=== PATIENT | female | born 1965 | race Caucasian/White ===

== ENCOUNTER 2017-12-24 11:17 | Emergency (ER) | payer OTHER ==
--- NOTE | 2017-12-24 12:16 | ER Document Report ---
ED Medical Screen (RME) - General Chief Complaint: Near Syncope Stated Complaint: WEAKNESS,CONFUSION Time Seen by Provider: 12/24/17 12:07 Mode of Arrival: Medic Information source: Patient, Relative Notes: 52-year-old female presents with daughter with concerns of confusion and syncope. Daughter notes confusion episodes have been ongoing now for months but symptoms have worsened recently. Daughter also notes a syncopal episode that occurred today while the patient was outside Patient did not completely pass out felt lightheaded and dizzy, patient does not remember these episodes, does have a history of seizures not on medications does take Benadryl at nighttime I have greeted and performed a rapid initial assessment of this patient. A comprehensive ED assessment and evaluation of the patient, analysis of test results and completion of the medical decision making process will be conducted by additional ED providers. PHYSICAL EXAMINATION: GENERAL: Well-appearing, well-nourished and in no acute distress. HEAD: Atraumatic, normocephalic. EYES: Pupils equal round extraocular movements intact, conjunctiva are normal. ENT: Nares patent NECK: Normal range of motion LUNGS: No respiratory distress Musculoskeletal: Normal range of motion NEUROLOGICAL: Normal speech, normal gait. PSYCH: Normal mood, normal affect. SKIN: Warm, Dry, normal turgor, no rashes or lesions noted. TRAVEL OUTSIDE OF THE [place] IN LAST 30 DAYS: No - Related Data Allergies/Adverse Reactions: codeine [Codeine] Allergy (Verified 12/24/17 11:19) Past Medical History Neurological Medical History: Reports: Hx Seizures Renal/ Medical History: Denies: Hx Peritoneal Dialysis Past Surgical History: Reports: Hx Section - x3 - Immunizations Hx Diphtheria, Pertussis, Tetanus Vaccination: No Physical Exam - Vital signs Vitals: Temp Pulse Resp BP Pulse Ox 99.0 F 93 18 150/74 H 95 12/24/17 11:24 12/24/17 11:24 12/24/17 11:24 12/24/17 11:24 12/24/17 11:24 Course - Vital Signs Vital signs: Temp Pulse Resp BP Pulse Ox 99.0 F 93 18 150/74 H 95 12/24/17 11:24 12/24/17 11:24 12/24/17 11:24 12/24/17 11:24 12/24/17 11:24
[2017-12-24 12:56] LABS: ABSOLUTE BASOPHILS # (AUTO) 0.1 10^3/uL (0.0-0.2); ABSOLUTE MONOCYTES (AUTO) 0.5 10^3/uL (0.1-1.4); ABSOLUTE NEUT (AUTO) 9.9 10^3/uL (1.7-8.2); BASOPHILS % (AUTO) 0.5 % (0-2); EOSINOPHILS % (AUTO) 0.1 % (0-6); HEMATOCRIT 47.1 % (36.0-47.0); HEMOGLOBIN 15.5 g/dL (12.0-15.5); MEAN CORPUSCULAR HEMOGLOBIN 30.2 pg (27.0-33.4); MEAN CORPUSCULAR HGB CONC 32.9 g/dL (32.0-36.0); MEAN CORPUSCULAR VOLUME 92 fl (80-97); MONOCYTES % (AUTO) 4.3 % (3-13); PLATELET COUNT 222 10^3/uL (150-450); RED BLOOD COUNT 5.15 10^6/uL (3.72-5.28); RED CELL DISTRIBUTION WIDTH 13.1 % (11.5-14.0); SEGMENTED NEUTROPHILS % (AUTO) 86.1 % (42-78); TOTAL CELLS COUNTED % (AUTO) 100 %; WHITE BLOOD COUNT 11.5 10^3/uL (4.0-10.5)
--- NOTE | 2017-12-24 12:57 | RADIOLOGY REPORT (SQ) ---
EXAM DESCRIPTION: CHEST 2 VIEWS COMPLETED DATE/TIME: 12/24/2017 12:49 pm REASON FOR STUDY: syncope COMPARISON: None. EXAM PARAMETERS: NUMBER OF VIEWS: two views TECHNIQUE: Digital Frontal and Lateral radiographic views of the chest acquired. RADIATION DOSE: NA LIMITATIONS: none FINDINGS: LUNGS AND PLEURA: No opacities, masses or pneumothorax. No pleural effusion. MEDIASTINUM AND HILAR STRUCTURES: No masses or contour abnormalities. HEART AND VASCULAR STRUCTURES: Heart normal size. No evidence for failure. BONES: No acute findings. HARDWARE: None in the chest. OTHER: No other significant finding. IMPRESSION: NO ACUTE RADIOGRAPHIC FINDING IN THE CHEST. TECHNICAL DOCUMENTATION: JOB ID: [id number] [employer]- All Rights Reserved Reading location - IP/workstation name: [facility][email or web address]
[2017-12-24 13:12] LABS: ALANINE AMINOTRANSFERASE 51 U/L (9-52); ALBUMIN 4.8 g/dL (3.5-5.0); ALKALINE PHOSPHATASE 78 U/L (38-126); ANION GAP 12 (5-19); ASPARTATE AMINO TRANSFERASE 44 U/L (14-36); BILIRUBIN,DIRECT 0.5 mg/dL (0.0-0.4); BILIRUBIN,TOTAL 0.9 mg/dL (0.2-1.3); BLOOD UREA NITROGEN 14 mg/dL (7-20); CALCIUM 11.2 mg/dL (8.4-10.2); CARBON DIOXIDE 28 mmol/L (22-30); CHLORIDE 106 mmol/L (98-107); CREATINE KINASE 192 U/L (30-135); GLUCOSE 122 mg/dL (75-110); POTASSIUM 4.2 mmol/L (3.6-5.0); SODIUM 145.8 mmol/L (137-145)
--- NOTE | 2017-12-24 13:12 | RADIOLOGY REPORT (SQ) ---
EXAM DESCRIPTION: CT HEAD WITHOUT COMPLETED DATE/TIME: 12/24/2017 12:54 pm REASON FOR STUDY: syncope COMPARISON: CT brain 09/11/2012 TECHNIQUE: Axial images acquired through the brain without intravenous contrast. Images reviewed wi th bone, brain and subdural windows. Additional sagittal and coronal reconstructions were generated. Images stored on PACS. All CT scanners at this facility use dose modulation, iterative reconstruction, and/or weight based d osing when appropriate to reduce radiation dose to as low as reasonably achievable (ALARA). [facility]: Dose Right [facility]: CareDose [facility]: Dose Right [facility]: Teradose 4D [facility]: [employer] RADIATION DOSE: CT Rad equipment meets quality standard of care and radiation dose reduction techniq ues were employed. CTDIvol: 53.2 mGy. DLP: 1070 mGy-cm. mGy. LIMITATIONS: None. FINDINGS: VENTRICLES: Normal size and contour. CEREBRUM: No masses. No hemorrhage. No midline shift. No evidence for acute infarction. Normal gra y/white matter differentiation. No areas of low density in the white matter. CEREBELLUM: No masses. No hemorrhage. No alteration of density. No evidence for acute infarction. EXTRAAXIAL SPACES: No fluid collections. No masses. ORBITS AND GLOBE: No intra- or extraconal masses. Normal contour of globe without masses. CALVARIUM: No fracture. PARANASAL SINUSES: No fluid or mucosal thickening. SOFT TISSUES: No mass or hematoma. OTHER: No other significant finding. IMPRESSION: NORMAL BRAIN CT WITHOUT CONTRAST. EVIDENCE OF ACUTE STROKE: NO. COMMENT: Quality ID # [id number]: Final reports with documentation of one or more dose reduction techniques (e.g., Automated exposure control, adjustment of the mA and/or kV according to patient size, use of iterative reconstruction technique) TECHNICAL DOCUMENTATION: JOB ID: [id number] [employer]- All Rights Reserved Reading location - IP/workstation name: [email or web address]-[email or web address]
[2017-12-24 13:20] LABS: CREATINE KINASE MB 2.22 ng/mL (<4.55)
[2017-12-24 13:22] LABS: TROPONIN I < 0.012 ng/mL
--- NOTE | 2017-12-24 14:19 | ER Document Report ---
ED General - General Chief Complaint: Near Syncope Stated Complaint: WEAKNESS,CONFUSION Time Seen by Provider: 12/24/17 12:07 Mode of Arrival: Medic Information source: Patient Notes: 52-year-old female presents the emergency department status post near syncopal episode. Patient states that she was at work and she was standing up outside when she began feeling lightheaded. Coworkers were with her and they noticed her become very pale and diaphoretic. They sat her down. Patient did not lose consciousness. EMS was called. Patient states that she is feeling much better in the room. She has no complaints. She denies any chest pain, shortness of breath, abdominal pain, nausea, vomiting, diarrhea, constipation, dysuria, hematuria. Patient states that over the last 3 years she has had some intermittent episodes of confusion that have been reported to her by her family. Family in the room. They state that the confusion follows episodes of seizure like activity. Family state that the patient will stare off into space, her Left arm will go rigid, and then she'll have tonic-clonic movements for a few seconds. Patient has been diagnosed with seizures in the past. Patient did not want to be started on medication for them. She also did not want to follow up with her PCP or neurologist because she did not want her driving revoked. Patient states that she does not have a family physician. Her daughter has made her an appointment with the physician to discuss the symptoms. TRAVEL OUTSIDE OF THE [place] IN LAST 30 DAYS: No - HPI Patient complains to provider of: near syncope Onset: Just prior to arrival Onset/Duration: Sudden Quality of pain: No pain Severity: None Pain Level: Denies Associated symptoms: None Exacerbated by: Denies Relieved by: Denies Similar symptoms previously: No Recently seen / treated by doctor: No - Related Data Allergies/Adverse Reactions: codeine [Codeine] Allergy (Verified 12/24/17 14:04) Past Medical History - General Information source: Patient, Relative - Social History Smoking Status: Current Every Day Smoker Family History: Reviewed & Not Pertinent Patient has suicidal ideation: No Patient has homicidal ideation: No Neurological Medical History: Reports: Hx Seizures Renal/ Medical History: Denies: Hx Peritoneal Dialysis Past Surgical History: Reports: Hx Section - x3 - Immunizations Hx Diphtheria, Pertussis, Tetanus Vaccination: No Review of Systems - Review of Systems Constitutional: Weakness EENT: No symptoms reported Cardiovascular: No symptoms reported, Lightheaded Respiratory: No symptoms reported Gastrointestinal: No symptoms reported Genitourinary: No symptoms reported Musculoskeletal: No symptoms reported Skin: No symptoms reported Hematologic/Lymphatic: No symptoms reported Neurological/Psychological: Confusion -: Yes All other systems reviewed and negative Physical Exam - Vital signs Vitals: Temp Pulse Resp BP Pulse Ox 99.0 F 93 18 150/74 H 95 12/24/17 11:24 12/24/17 11:24 12/24/17 11:24 12/24/17 11:24 12/24/17 11:24 Interpretation: Normal - Notes Notes: PHYSICAL EXAMINATION: GENERAL: Well-appearing, well-nourished and in no acute distress. HEAD: Atraumatic, normocephalic. EYES: Pupils equal round and reactive to light, extraocular movements intact, conjunctiva are normal. ENT: Nares patent, oropharynx clear without exudates. Moist mucous membranes. NECK: Normal range of motion, supple without lymphadenopathy LUNGS: Breath sounds clear to auscultation bilaterally and equal. No wheezes rales or rhonchi. HEART: Regular rate and rhythm without murmurs ABDOMEN: Soft, nontender, nondistended abdomen. No guarding, no rebound. No masses appreciated. Female : deferred Musculoskeletal: Normal range of motion, no pitting or edema. No cyanosis. NEUROLOGICAL: Cranial nerves grossly intact. Normal speech, normal gait. Normal sensory, motor exams PSYCH: Normal mood, normal affect. SKIN: Warm, Dry, normal turgor, no rashes or lesions noted. Course - Re-evaluation Re-evalutation: 12/24/17 17:03 In the emergency department, patient's labs and imaging were within normal limits. Patient had 2 sets of cardiac enzymes done and were normal. 2 EKGs were done and are normal. Patient has no complaints. Patient was loaded with 1 g of Keppra in the emergency department. I discussed with the patient and her family members that she will need to follow-up with neurology for her seizures. Patient's daughter is with her in the room. She states that she will make sure that she sees the neurologist. Daughter states that she does have a family physician appointment this week. I instructed the patient to keep this appointment. I will start her on Keppra. I instructed the patient to take the medication as directed. I also told the patient that she should not drive until evaluated by the neurologist. Patient and her family feels agreeable with the plan of care. I will discharge her home. - Vital Signs Vital signs: Temp Pulse Resp BP Pulse Ox 99.0 F 78 19 148/75 H 96 12/24/17 14:30 12/24/17 15:52 12/24/17 16:51 12/24/17 16:51 12/24/17 16:51 - Laboratory Result Diagrams: 12/24/17 12:35 12/24/17 12:35 Laboratory results interpreted by me: 12/24/17 12/24/17 12/24/17 12:35 12:35 13:55 WBC 11.5 H Hct 47.1 H Seg Neutrophils % 86.1 H Lymphocytes % 9.0 L Absolute Neutrophils 9.9 H Sodium 145.8 H Glucose 122 H Calcium 11.2 H Direct Bilirubin 0.5 H AST 44 H Creatine Kinase 192 H Urine Protein 100 H Urine Ketones 20 H Urine Blood SMALL H Urine Urobilinogen 2.0 H - EKG Interpretation by Me EKG shows normal: Sinus rhythm Rate: Normal Rhythm: NSR - Ventricular rate 71, IN interval 124, QRS duration 84, QTc 435, no ischemic changes. Additional EKG results interpreted by me: 12/24/17 14:38 Repeat EKG done at 14: 27 Ventricular rate 72, IN interval 120, QRS duration 86, QTc 434, normal sinus rhythm, no ischemic changes. Discharge - Discharge Clinical Impression: Near syncope, Seizure Condition: Stable Disposition: HOME, SELF-CARE Instructions: Seizure, Known Epileptic ([facility]), Near Syncopal Episode ([facility]) Additional Instructions: Follow up with the family medicine physician and neurologist this week. Take medication as directed. Return for worsening symptoms. Prescriptions: Levetiracetam [Keppra 500 mg Tablet] 500 mg PO Q12 #60 tablet Referrals: ALVA ARMSTRONG MD [NO LOCAL MD] - Follow up as needed SONYA ALVARADO MD [ACTIVE STAFF] - Follow up as needed
[2017-12-24] MEDS ORDERED: NORMAL SALINE 1000 ML 1,000 ML IV ONE (14:31)
[2017-12-24 14:56] LABS: APPEARANCE,URINE SLIGHTLY-CLOUDY; BILIRUBIN,URINE NEGATIVE (NEGATIVE); GLUCOSE, URINE NEGATIVE (NEGATIVE); KETONES,URINE 20 mg/dL (NEGATIVE); LEUKOCYTE ESTERASE,URINE NEGATIVE (NEGATIVE); NITRITE,URINE NEGATIVE (NEGATIVE); PROTEIN,URINE 100 mg/dL (NEGATIVE); URINE SPECIFIC GRAVITY 1.026
[2017-12-24 14:58] LABS: COLOR,URINE DARK YELLOW
[2017-12-24] MEDS ORDERED: LEVETIRACETAM 500 MG TABLET PO ONE (16:00)
[2017-12-24 17:52] VITALS: BP 140/68
--- NOTE | 2017-12-24 18:23 | EKG REPORT ---
SEVERITY:- NORMAL ECG - SINUS RHYTHM : Confirmed by: Federico Hurst MD 24-Dec-2017 18:22:43
--- NOTE | 2017-12-24 18:23 | EKG REPORT ---
SEVERITY:- NORMAL ECG - SINUS RHYTHM : Confirmed by: Federico Hurst MD 24-Dec-2017 18:22:35
== END 2017-12-24 18:05 | disposition home or self-care (01) ==
LOC: ER 11:17
DX: R56.9 Unspecified convulsions (principal); R42 Dizziness and giddiness; R53.1 Weakness; R41.0 Disorientation, unspecified; F17.200 Nicotine dependence, unspecified, uncomplicated
CPT/HCPCS: 93005; 99285; 96360; 36415; 82553; 82550; 85025; 80053; 81001; 84484; 71046; 70450; 93010; J7030

== ENCOUNTER 2020-02-02 17:52 | Emergency (ER) | payer OTHER ==
--- NOTE | 2020-02-02 18:27 | ER Document Report ---
ED Medical Screen (RME) - General Chief Complaint: Probable Seizure Stated Complaint: WEAKNESS,CONFUSION Time Seen by Provider: 02/02/20 18:16 Mode of Arrival: Ambulatory Information source: Patient, Relative Notes: HPI; 54-year-old female past medical history significant for seizures was brought to the emergency room by her grandson who states that he thinks his grandmother is having absent seizures. States was supposed to be on Keppra but she ran out several months ago when her Medicaid ran out and they have been unable to get an appointment with her neurologist. Robinson said that she is having some erratic behavior, some altered mental status, noticed that she tends to be staring off into space at times notices some shaking of her hands. PE: Patient is alert and oriented x2. Knows her name and where she is got her age wrong. Cooperative. Tends to wander around the triage room. Knows who her neurologist is. Lungs: Are clear to auscultation without rales, rhonchi, wheez es. Heart: Regular rate rhythm without murmurs, rubs, gallops I have greeted and performed a rapid initial assessment of this patient. A comprehensive ED assessment and evaluation of the patient, analysis of test results and completion of the medical decision making process will be conducted by additional ED providers. I have specifically instructed the patient or family members with the patient to immediately return to any nursing staff should anything change in the patient's condition or with their chief complaint. TRAVEL OUTSIDE OF THE [place] IN LAST 30 DAYS: No - Related Data Allergies/Adverse Reactions: codeine [Codeine] Allergy (Verified 12/24/17 14:04) Past Medical History Neurological Medical History: Reports: Hx Seizures Renal/ Medical History: Denies: Hx Peritoneal Dialysis Past Surgical History: Reports: Hx Section - x3 - Immunizations Hx Diphtheria, Pertussis, Tetanus Vaccination: No Physical Exam - Vital signs Vitals: Temp Pulse Resp BP Pulse Ox 99.4 F 93 21 H 160/70 H 96 02/02/20 17:59 02/02/20 17:59 02/02/20 17:59 02/02/20 17:59 02/02/20 17:59 Course - Vital Signs Vital signs: Temp Pulse Resp BP Pulse Ox 99.4 F 93 21 H 160/70 H 96 02/02/20 17:59 02/02/20 17:59 02/02/20 17:59 02/02/20 17:59 02/02/20 17:59
[2020-02-02 18:57] LABS: ABSOLUTE LYMPHOCYTES (AUTO) 0.8 10^3/uL (0.5-4.7); ABSOLUTE MONOCYTES (AUTO) 0.5 10^3/uL (0.1-1.4); ABSOLUTE NEUT (AUTO) 7.6 10^3/uL (1.7-8.2); BASOPHILS % (AUTO) 0.4 % (0-2); EOSINOPHILS % (AUTO) 0.1 % (0-6); HEMATOCRIT 43.7 % (36.0-47.0); HEMOGLOBIN 14.8 g/dL (12.0-15.5); MEAN CORPUSCULAR HEMOGLOBIN 30.2 pg (27.0-33.4); MEAN CORPUSCULAR HGB CONC 33.9 g/dL (32.0-36.0); MEAN CORPUSCULAR VOLUME 89 fl (80-97); MONOCYTES % (AUTO) 5.9 % (3-13); PLATELET COUNT 223 10^3/uL (150-450); RED CELL DISTRIBUTION WIDTH 13.3 % (11.5-14.0); SEGMENTED NEUTROPHILS % (AUTO) 84.6 % (42-78); TOTAL CELLS COUNTED % (AUTO) 100 %; WHITE BLOOD COUNT 8.9 10^3/uL (4.0-10.5)
--- NOTE | 2020-02-02 19:07 | RADIOLOGY REPORT (SQ) ---
EXAM DESCRIPTION: CT HEAD WITHOUT IMAGES COMPLETED DATE/TIME: 02/02/2020 6:57 pm REASON FOR STUDY: altered mental status COMPARISON: 12/24/2017 TECHNIQUE: Axial images acquired through the brain without intravenous contrast. Images reviewed wi th bone, brain and subdural windows. Additional sagittal and coronal reconstructions were generated. Images stored on PACS. All CT scanners at this facility use dose modulation, iterative reconstruction, and/or weight based d osing when appropriate to reduce radiation dose to as low as reasonably achievable (ALARA). [facility]: Dose Right [facility]: CareDose [facility]: Dose Right [facility]: Teradose 4D [facility]: [employer] RADIATION DOSE: CT Rad equipment meets quality standard of care and radiation dose reduction techniq ues were employed. CTDIvol: 53.2 mGy. DLP: 964 mGy-cm. mGy. LIMITATIONS: None. FINDINGS: VENTRICLES: Normal size and contour. CEREBRUM: No masses. No hemorrhage. No midline shift. No evidence for acute infarction. Normal gra y/white matter differentiation. No areas of low density in the white matter. CEREBELLUM: No masses. No hemorrhage. No alteration of density. No evidence for acute infarction. EXTRAAXIAL SPACES: No fluid collections. No masses. ORBITS AND GLOBE: No intra- or extraconal masses. Normal contour of globe without masses. CALVARIUM: No fracture. PARANASAL SINUSES: No fluid or mucosal thickening. SOFT TISSUES: No mass or hematoma. OTHER: No other significant finding. IMPRESSION: NORMAL BRAIN CT WITHOUT CONTRAST. EVIDENCE OF ACUTE STROKE: NO. COMMENT: Quality ID # [id number]: Final reports with documentation of one or more dose reduction techniques (e.g., Automated exposure control, adjustment of the mA and/or kV according to patient size, use of iterative reconstruction technique) TECHNICAL DOCUMENTATION: JOB ID: [id number] [employer]- All Rights Reserved Reading location - IP/workstation name: [email or web address]
[2020-02-02 19:23] LABS: ALBUMIN 4.3 g/dL (3.5-5.0); ALKALINE PHOSPHATASE 88 U/L (38-126); ANION GAP 7 (5-19); ASPARTATE AMINO TRANSFERASE 28 U/L (14-36); BILIRUBIN,TOTAL 0.5 mg/dL (0.2-1.3); BLOOD UREA NITROGEN 14 mg/dL (7-20); CALCIUM 10.5 mg/dL (8.4-10.2); CARBON DIOXIDE 24 mmol/L (22-30); CHLORIDE 102 mmol/L (98-107); GLUCOSE 129 mg/dL (75-110); POTASSIUM 4.2 mmol/L (3.6-5.0); TOTAL PROTEIN 7.2 g/dL (6.3-8.2)
[2020-02-02 19:32] LABS: ALCOHOL < 10 mg/dL (NONE DETECTED)
[2020-02-02] MEDS ORDERED: LEVETIRACETAM 1000 MG/NACL-ISO 1,000 MG/100 ML RTUPB IV ONE (21:25)
[2020-02-02 21:29] LABS: APPEARANCE,URINE CLEAR; BILIRUBIN,URINE NEGATIVE (NEGATIVE); COLOR,URINE YELLOW; GLUCOSE, URINE NEGATIVE (NEGATIVE); KETONES,URINE 20 mg/dL (NEGATIVE); LEUKOCYTE ESTERASE,URINE NEGATIVE (NEGATIVE); NITRITE,URINE NEGATIVE (NEGATIVE); PROTEIN,URINE 100 mg/dL (NEGATIVE); URINE SPECIFIC GRAVITY 1.021
--- NOTE | 2020-02-02 21:33 | ER Document Report ---
ED General - General Chief Complaint: Seizure Stated Complaint: WEAKNESS,CONFUSION Time Seen by Provider: 02/02/20 18:16 Primary Care Provider: SNOYA ALVARADO MD [Primary Care Provider] - Follow up as needed Mode of Arrival: Ambulatory Information source: Patient Notes: Patient is a 54-year-old female with history of epilepsy presenting to the emergency department having partial seizures at home. Patient reports she has been out of her medication for 1 year. She states she was unable to afford it. She states she now has insurance and wants to get back on her medication. Her grandson is at the bedside, states she has been having 2-3 partial seizures per day. She usually stares off for a few minutes and then returns to baseline when she has her partial seizures. Patient denies any acute complaints today. She denies chest pain, shortness of breath, cough, fever, chills, nausea, vomiting or diarrhea. TRAVEL OUTSIDE OF THE [place] IN LAST 30 DAYS: No - Related Data Allergies/Adverse Reactions: codeine [Codeine] Allergy (Verified 12/24/17 14:04) Past Medical History - General Information source: Patient, Relative - Social History Smoking Status: Current Every Day Smoker Chew tobacco use (# tins/day): No Frequency of alcohol use: Heavy Drug Abuse: None Family History: Reviewed & Not Pertinent Patient has homicidal ideation: No Neurological Medical History: Reports: Hx Seizures Renal/ Medical History: Denies: Hx Peritoneal Dialysis Past Surgical History: Reports: Hx Section - x3 - Immunizations Hx Diphtheria, Pertussis, Tetanus Vaccination: No Review of Systems - Review of Systems Neurological/Psychological: Seizure -: Yes All other systems reviewed and negative Physical Exam - Vital signs Vitals: Temp Pulse Resp BP Pulse Ox 99.4 F 93 21 H 160/70 H 96 02/02/20 17:59 02/02/20 17:59 02/02/20 17:59 02/02/20 17:59 02/02/20 17:59 - Notes Notes: PHYSICAL EXAMINATION: GENERAL: Well-appearing, well-nourished and in no acute distress. HEAD: Atraumatic, normocephalic. EYES: Pupils equal round and reactive to light, extraocular movements intact, conjunctiva are normal. ENT: Nares patent, oropharynx clear without exudates. Moist mucous membranes. NECK: Normal range of motion, supple without lymphadenopathy LUNGS: Breath sounds clear to auscultation bilaterally and equal. No wheezes r ales or rhonchi. HEART: Regular rate and rhythm without murmurs ABDOMEN: Soft, nontender, nondistended abdomen. No guarding, no rebound. No masses appreciated. Female : deferred Musculoskeletal: Normal range of motion, no pitting or edema. No cyanosis. NEUROLOGICAL: Cranial nerves grossly intact. Normal speech, normal gait. Normal sensory, motor exams PSYCH: Normal mood, normal affect. SKIN: Warm, Dry, normal turgor, no rashes or lesions noted. Course - Re-evaluation Re-evalutation: 02/02/20 21:31 Patient appears well, nontoxic, vital signs reviewed and are within normal limits. She is alert and oriented x4. Patient has no acute abnormalities with her labs. Her urinalysis is still pending. Plan is to give her a dose of IV Keppra here in the emergency department and refill her medication for 30 days. She understands that she needs to follow-up with her primary care provider who is Dr. Alvarado for further medication management. - Vital Signs Vital signs: Temp Pulse Resp BP Pulse Ox 99.4 F 93 21 H 160/70 H 96 02/02/20 17:59 02/02/20 17:59 02/02/20 17:59 02/02/20 17:59 02/02/20 17:59 - Laboratory Result Diagrams: 02/02/20 18:48 02/02/20 18:48 Laboratory results interpreted by me: 02/02/20 02/02/20 02/02/20 18:48 18:48 20:47 Lymph % (Auto) 9.0 L Seg Neutrophils % 84.6 H Sodium 132.5 L Glucose 129 H Calcium 10.5 H Urine Protein 100 H Urine Ketones 20 H Urine Blood MODERATE H Urine Urobilinogen 2.0 H Discharge - Discharge Clinical Impression: Seizure, Nonadherence to medication Condition: Stable Disposition: HOME, SELF-CARE Additional Instructions: Please call and schedule an appointment with your primary care provider. It is very important to continue taking your medications for your epilepsy. The reason you are having an increase in seizures is likely because you stopped taking her medication. Please return to the emergency department any new or worsening concerns. Prescriptions: Levetiracetam [Keppra 500 mg Tablet] 500 mg PO Q12 #60 tablet Referrals: SONYA ALVARADO MD [Primary Care Provider] - Follow up as needed
[2020-02-02 21:38] LABS: URINE AMPHETAMINES SCREEN NEGATIVE; URINE BARBITURATES SCREEN NEGATIVE; URINE BENZODIAZEPINES SCREEN NEGATIVE; URINE COCAINE SCREEN NEGATIVE; URINE METHADONE SCREEN NEGATIVE; URINE PHENCYCLIDINE SCREEN NEGATIVE
[2020-02-02 21:39] LABS: URINE MARIJUANA (THC) SCREEN UNCONFIRMED POSITIVE
[2020-02-02 23:03] VITALS: BP 161/78
== END 2020-02-02 23:01 | disposition home or self-care (01) ==
LOC: ER 17:52
DX: G40.909 Epilepsy, unspecified, not intractable, without status epilepticus (principal); Z91.14 Patient's other noncompliance with medication regimen; F17.200 Nicotine dependence, unspecified, uncomplicated; Z88.6 Allergy status to analgesic agent; Z88.5 Allergy status to narcotic agent
CPT/HCPCS: 99284; 96374; 36415; 80307 ×2; 85025; 80053; 81001; 70450; J1953